=== PATIENT | female | born 1950 | race Caucasian/White ===

== ENCOUNTER → 2018-04-15 | Outpatient (CLI) | payer MEDICARE, OTHER ==
--- NOTE | 2018-04-15 12:35 | RADIOLOGY REPORT (SQ) ---
EXAM DESCRIPTION: SHOULDER LEFT 2 OR MORE VIEWS COMPLETED DATE/TIME: 04/15/2018 11:28 am REASON FOR STUDY: PAIN IN LEFT SHOULDER M54.2 CERVICALGIA M25.512 PAIN IN LEFT SHOULDER COMPARISON: None. NUMBER OF VIEWS: Three views. TECHNIQUE: Internal rotation, external rotation, and Y view images acquired of the left shoulder. LIMITATIONS: None. FINDINGS: MINERALIZATION: Osteopenic BONES: No acute fracture or dislocation. No worrisome bone lesions. JOINTS: No glenohumeral dislocation. Mild acromioclavicular joint bony spurring without AC separatio n. VISUALIZED LUNGS AND RIBS: No pneumothorax. No rib fracture. SOFT TISSUES: No radiopaque foreign body. OTHER: No other significant finding. IMPRESSION: No acute findings. No gross lytic or blastic lesions. Mild AC joint bony spurring. TECHNICAL DOCUMENTATION: JOB ID: [id number] [employer]- All Rights Reserved Reading location - IP/workstation name: [email or web address]
--- NOTE | 2018-04-15 12:39 | RADIOLOGY REPORT (SQ) ---
EXAM DESCRIPTION: CERV SP 4 OR 5 VIEWS COMPLETED DATE/TIME: 04/15/2018 11:28 am REASON FOR STUDY: CELVICALGIA M54.2 CERVICALGIA M25.512 PAIN IN LEFT SHOULDER COMPARISON: None. NUMBER OF VIEWS: Five views. TECHNIQUE: AP, lateral, obliques and odontoid radiographic images acquired of the cervical spine. LIMITATIONS: None. FINDINGS: MINERALIZATION: Osteopenic ALIGNMENT: Convex leftward cervical curvature VERTEBRAE: Vertebral bodies of normal height. DISCS: High-grade disc space narrowing with anterior osteophyte formation at C3-4, C4-5, and C5-6. FORAMINA: Mild to moderate bilateral foraminal narrowing at C3-4, C4-5, C5-6 from facet and uncoverte bral hypertrophy. LATERAL AND POSTERIOR ELEMENTS: Multilevel facet arthropathy. HARDWARE: None in the spine. SOFT TISSUES: No masses or calcifications. Lung apices clear. OTHER: No other significant finding. IMPRESSION: Diffuse degenerative disc changes as above TECHNICAL DOCUMENTATION: JOB ID: [id number] [employer]- All Rights Reserved Reading location - IP/workstation name: [email or web address]
== END ==
LOC: RAD 10:34
PROVIDERS: ATTEND Internal Medicine
DX: M54.2 Cervicalgia (principal); M25.512 Pain in left shoulder
CPT/HCPCS: 72050

== ENCOUNTER → 2018-07-30 | Outpatient (CLI) | payer MEDICARE, OTHER ==
--- NOTE | 2018-07-30 15:01 | RADIOLOGY REPORT (SQ) ---
EXAM DESCRIPTION: MRI CERVICAL SPINE WITHOUT COMPLETED DATE/TIME: 07/30/2018 2:29 pm REASON FOR STUDY: SPINAL STENOSIS, CERVICAL REGION (M48.02) M48.02 SPINAL STENOSIS, CERVICAL REGION COMPARISON: Cervical spine films 04/15/2018 TECHNIQUE: Sagittal and Axial imaging includes T1, T2, STIR and gradient echo sequences. LIMITATIONS: None. FINDINGS: ALIGNMENT: Reversal of cervical curvature related to advanced degenerative disc changes wi th disc space loss of height from C3-4 through C5-6. VERTEBRAE: No compression deformities BONE MARROW: Reactive fatty and sclerotic vertebral body endplate changes at C3-4, C4-5, and C5-6 DISCS: Disc space loss of height at C3-4, C4-5, C5-6 HARDWARE: None in the spine. CORD AND BASE OF BRAIN: Normal in size and signal intensity. SOFT TISSUES: No soft tissue masses. C1-C2: No significant spinal stenosis. C2-C3: No significant spinal stenosis or exit foraminal stenosis. C3-C4: Broad diffuse posterior disc bulge and bony spurring partially effaces the ventral thecal sac and abuts the ventral cord without cord flattening or abnormal intrinsic cord signal. Borderline jessie tral canal stenosis. Moderate bilateral foraminal narrowing from facet and uncovertebral hypertrophy C4-C5: Broad diffuse posterior disc bulge and bony spurring effaces the ventral thecal sac and abuts the ventral cord without cord flattening or abnormal intrinsic cord signal. Mild central canal steno sis. Mild to moderate bilateral foraminal narrowing from facet and uncovertebral hypertrophy C5-C6: Broad diffuse posterior disc bulge and bony spurring is present, partially effacing the ventra l thecal sac and abutting the cord without cord flattening or abnormal intrinsic cord signal. Border line central canal stenosis. High-grade right, moderate to high-grade left foraminal narrowing from facet and uncovertebral hypertrophy. C6-C7: No significant central canal stenosis or foraminal stenosis. C7-T1: No significant central canal stenosis. Mild bilateral foraminal narrowing from facet hypertro phy. UPPER THORACIC: Incompletely imaged. No significant spinal stenosis or exit foraminal stenosis. OTHER: No other significant finding. IMPRESSION: Significant degenerative disc changes at C3-4, C4-5, and C5-6 as above TECHNICAL DOCUMENTATION: JOB ID: [id number]- All Rights Reserved Reading location - IP/workstation name: [email or web address]
== END ==
LOC: RAD 07-23 18:29
PROVIDERS: ATTEND Orthopaedic Surgery
DX: M48.02 Spinal stenosis, cervical region (principal)
CPT/HCPCS: 72141